=== PATIENT | female | born 1995 | race African-American/Black ===

== ENCOUNTER 2022-07-27 21:15 | Observation (INO) | payer MEDICAID ==
[~2022-07-27] VITALS: Ht 160 cm; Wt 60.3 kg
[2022-07-27] MEDS ORDERED: TERBUTALINE SULFATE 1 MG/ML 1ML VIAL SC SCH (22:05)
== END 2022-07-27 23:38 | disposition home or self-care (01) ==
LOC: LDRP 21:15
PROVIDERS: ADMIT Obstetrics & Gynecology; ATTEND Obstetrics & Gynecology
DX: O46.93 Antepartum hemorrhage, unspecified, third trimester (principal); Z3A.31 31 weeks gestation of pregnancy
CPT/HCPCS: 59025; 81002; 96372; G0378; J3105